=== PATIENT | female | born 1965 | race African-American/Black ===

== ENCOUNTER 2018-07-31 18:14 | Emergency (ER) | payer OTHER ==
[~2018-07-31] VITALS: Ht 160 cm; Wt 86.2 kg
[2018-07-31] MEDS ORDERED: CYCLOBENZAPRINE5 MG PO (18:47)
[2018-07-31] MEDS ORDERED: RISPERDAL 1 MG T1 MG PO (18:48)
[2018-07-31] MEDS ORDERED: ACYCLOVIR 400400 MG PO (18:48)
[2018-07-31] MEDS ORDERED: LAMICTAL100 MG PO (18:48)
[2018-07-31] MEDS ORDERED: DESCOVY 200-251 EACH PO (18:48)
[2018-07-31] MEDS ORDERED: BRINTELLIX10 MG PO (18:48)
[2018-07-31] MEDS ORDERED: PREZCOBIX 8001 EACH PO (18:49)
[2018-07-31] MEDS ORDERED: SUMATRIPTAN SUC50 MG PO (18:49)
[2018-07-31] MEDS ORDERED: WAL-ZYR10 M1 PO (18:49)
[2018-07-31] MEDS ORDERED: IRON325 PO (18:50)
[2018-07-31] MEDS ORDERED: NORCO 5-325 TA1 EACH PO (19:04)
[2018-07-31] MEDS ORDERED: FLEXERIL PO (19:04)
[2018-07-31 19:43] VITALS: BP 130/79
== END 2018-07-31 19:44 | disposition home or self-care (01) ==
LOC: ER 18:14
DX: M79.10 Myalgia, unspecified site (principal); M54.2 Cervicalgia; Z91.040 Latex allergy status; Z21 Asymptomatic human immunodeficiency virus [HIV] infection status; V43.52XA Car driver injured in collision with other type car in traffic accident, initial encounter; Y92.410 Unspecified street and highway as the place of occurrence of the external cause; Y93.89 Activity, other specified; Y99.8 Other external cause status

== ENCOUNTER 2018-10-17 08:04 | Emergency (ER) | payer OTHER ==
[~2018-10-17] VITALS: Ht 160 cm; Wt 83.9 kg
[~2018-10-17 08:04] MED LIST: ACYCLOVIR 400400 MG PO; BRINTELLIX10 MG PO; CYCLOBENZAPRINE5 MG PO; DESCOVY 200-251 EACH PO; FLEXERIL PO; IRON325 PO; LAMICTAL100 MG PO; NORCO 5-325 TA1 EACH PO; PREZCOBIX 8001 EACH PO; RISPERDAL 1 MG T1 MG PO; SUMATRIPTAN SUC50 MG PO; WAL-ZYR10 M1 PO
[2018-10-17 08:32] LABS: URINE BILIRUBIN NEGATIVE (Negative); URINE BLOOD TRACE (Negative); URINE CLARITY SL HAZY; URINE COLOR YELLOW; URINE GLUCOSE-RANDOM* NEGATIVE (Negative); URINE KETONES NEGATIVE (Negative); URINE LEUKOCYTES-REFLEX NEGATIVE (Negative); URINE NITRITE-REFLEX NEGATIVE (Negative); URINE PROTEIN (DIPSTICK) NEGATIVE (Negative); URINE SPECIFIC GRAVITY >= 1.030 (1.005-1.035); URINE UROBILINOGEN 0.2 E.U./dl (0.2-1.0)
[2018-10-17] MEDS ORDERED: DIFLUCAN150 M1 PO (09:43)
[2018-10-17 09:54] VITALS: BP 143/72
== END 2018-10-17 09:56 | disposition home or self-care (01) ==
LOC: ER 08:04
PROVIDERS: Student in an Organized Health Care Education/Training Program
DX: B37.3 Candidiasis of vulva and vagina (principal); Z21 Asymptomatic human immunodeficiency virus [HIV] infection status; Z91.040 Latex allergy status